=== PATIENT | female | born 1975 | race Caucasian/White ===

== ENCOUNTER → 2017-01-04 | Outpatient (CLI) | payer BC ==
[2017-01-04 10:22] LABS: EKG EKG PERFORMED
[2017-01-04 10:35] LABS: Basophils % (A) 0 %; CHCM 32.9; Eosinophils # (A) 0.2 k/uL (0-0.7); Eosinophils % (A) 3 %; HCT 40.3 % (34.0-46.0); HDW 2.42; HGB 13.3 gm/dL (11.4-16.0); Luc # (Auto) 0.21; Luc % (Auto) 3; Lymphocytes # (A) 1.8 k/uL (1.0-4.8); Lymphocytes % (A) 25 %; MCH 29.2 pg (25.0-35.0); MCV 88.5 fL (80.0-100.0); Mean Platelet Volume 7.3; Monocytes # (A) 0.4 k/uL (0-1.0); Monocytes % (A) 6 %; Neutrophils # (A) 4.5 k/uL (1.3-7.7); Neutrophils % (A) 63 %; RBC 4.55 m/uL (3.80-5.40); RDW 13.2 % (11.5-15.5); WBC 7.1 k/uL (3.8-10.6); WBC (Perox) 7.18
[2017-01-04 11:09] LABS: Anion Gap 12 mmol/L; Blood Urea Nitrogen 13 mg/dL (7-17); Carbon Dioxide 27 mmol/L (22-30); Chloride 103 mmol/L (98-107); Glucose 94 mg/dL (74-99); Non-African American GFR(MDRD) >60 (>60 ml/min/1.73 sqM); Potassium 4.4 mmol/L (3.5-5.1); Sodium 142 mmol/L (137-145)
== END | disposition home or self-care (01) ==
LOC: LABPAT 09:52
PROVIDERS: ATTEND Obstetrics & Gynecology
DX: Z01.812 Encounter for preprocedural laboratory examination (principal); Z01.810 Encounter for preprocedural cardiovascular examination; I10 Essential (primary) hypertension
CPT/HCPCS: 80051; 82565; 82947; 84520; 85025; 86850; 86900; 86901; 87086; 93005

== ENCOUNTER 2017-01-14 06:04 | Observation (INO) | payer BC ==
[2017-01-10 08:55] VITALS: BMI 44.4
[~2017-01-14 06:04] MED LIST: DEXAMETHASONE SOD PHOSPHATE 10 MG/ML 1 ML VIAL IV ONE; FAMOTIDINE 20 MG/2 ML VIAL IV PRN; HEPARIN SODIUM,PORCINE 5,000 UNIT/ML 1 ML VIAL SQ ONE; HYDROmorphone 1 MG/ML 1 ML SYRINGE IVP PRN; LACTATED RINGERS 1,000 ML IV SCH; LIDOCAINE 1% 20 ML VIAL (10MG/ML) FOR IV START INTRADERMA PRN; MIDAZOLAM 2 MG/2 ML VIAL IV PRN; ONDANSETRON 4 MG/2 ML VIAL IVP ONE; SCOPOLAMINE 1.5MG/72HR PATCH TRANSDERM ONE; ceFAZolin 3 GM in SODIUM CHLORIDE 0.9% 100 ML IVPB ONE
[2017-01-14] MEDS ORDERED: MIDAZOLAM 2 MG/2 ML VIAL IVP ONE (07:00)
[2017-01-14] MEDS ORDERED: fentaNYL (PF) 50 MCG/ML 2 ML AMP ONE (07:28)
[2017-01-14] MEDS ORDERED: SUCCINYLCHOLINE CHLORIDE 100 MG/5 ML SYR IV ONE (07:28)
[2017-01-14] MEDS ORDERED: diphenhydrAMINE 50 MG/ML 1 ML VIAL ONE (07:28)
[2017-01-14] MEDS ORDERED: MORPHINE SULFATE (PF) 0.3 MG/0.3 ML SYR ONE (07:28)
[2017-01-14] MEDS ORDERED: MIDAZOLAM 2 MG/2 ML VIAL ONE (07:28)
[2017-01-14] MEDS ORDERED: PROPOFOL 10 MG/ML 20 ML VIAL IV ONE (07:28)
[2017-01-14] MEDS ORDERED: LIDOCAINE 1% INJ 10MG/ML (20 ML MDV) ONE (07:28)
[2017-01-14] MEDS ORDERED: VASOPRESSIN 20 UNIT/ML 1 ML VIAL SQ ONE (07:47)
[2017-01-14] MEDS ORDERED: LACTATED RINGERS 1,000 ML IV ONE (08:25)
[2017-01-14] MEDS ORDERED: SIMETHICONE 80 MG CHEWABLE PO PRN (08:35)
[2017-01-14] MEDS ORDERED: ZOLPIDEM 5 MG TAB PO PRN (08:35)
[2017-01-14] MEDS ORDERED: ONDANSETRON 4 MG/2 ML VIAL IVP PRN ×2 (08:35→09:12)
[2017-01-14] MEDS ORDERED: METOCLOPRAMIDE 5 MG/ML 2 ML VIAL IVP PRN (08:35)
[2017-01-14] MEDS ORDERED: IBUPROFEN 600 MG TAB PO PRN (08:35)
--- NOTE | 2017-01-14 08:35 | P.OP ---
Date of Procedure: 01/14/17 Preoperative Diagnosis: Severe dysmenorrhea, fibroid uterus. Postoperative Diagnosis: Same, pathology pending, normal-appearing ovaries bilaterally Procedure(s) Performed: Vaginal hysterectomy Anesthesia: TOSHIAA Surgeon: Mago Clark Hand Hardener #1: Glenny Bustos Estimated Blood Loss (ml): 25 IV fluids (ml): 750 Urine output (ml): 100 Pathology: other (Cervix and uterus) Condition: stable Disposition: PACU Description of Procedure: Patient is brought to the operating suite where a general anesthetic is administered following a spinal with Duramorph. Patient is placed in the dorsal lithotomy position. The cervix, vagina, perineum and. Periurethral areas are all prepped and draped in usual sterile fashion. The appropriate timeout is performed to assure proper patient and procedural identification. Antibiotics are given. Urine hCG is negative. 5000 units subcutaneous heparin is also given. Sequential stockings are placed. Weighted speculum was placed into the vagina. The bladder is drained for 100 mL of clear yellow urine. The anterior lip of the cervix is grasped with a double-tooth tenaculum. The cervix is injected circumferentially with a dilute Pitressin solution, 10 mL total used. A port heiden blade scalpel is used to incise the mucosa circumferentially with a V like positioning posteriorly at 6:00. At all times the bladder swept well from the operative field to avoid bladder and/ or ureteral injury. Peritoneum is entered at 6:00, suture tied with 2-0 Vicryl which is held with a hemostat. Large billed speculum is placed then into the peritoneal cavity. The right uterosacral ligament complex is identified, clamped cut and held with a 0 Vicryl suture laterally. Same procedure is carried out on the contralateral ligament. Skeletonization is performed on the uterine vasculature. Uterine vasculature is clamped cut and suture ligated. 2 additional pedicles are taken superior to the vessels. The anterior peritoneal cavity is entered. The uterus is then "walked out" posteriorly. Jacobo clamps are used across the final ligaments and the specimen is sent to pathology for evaluation. The final pedicles are suture tied with 0 Vicryl suture, flashed, and retied for excellent hemostasis. A sponge stick is then used and ovaries are visualized, noted to be within normal limits to inspection and therefore left in situ per the patient's wishes. The shorter weighted speculum was then placed into the vagina. The 2-0 Vicryl suture is brought around in a pursestring fashion to close the peritoneal cavity. Peldxi-ej-rzlix sutures are used on the remaining portions of the vaginal mucosa for excellent reapproximation and hemostasis. The previously held uterosacral ligament complex these are brought across to incorporate the opposite complex as well as vaginal mucosa. Bernal catheter is then replaced, urine is clear. The vagina is packed with one-inch iodophor gauze. All sponge needle and enhancement counts are correct at the end of the procedure. Patient is brought back to recovery room in very good condition with stable vital signs including blood pressure 97/47, pulse 69, estimated blood loss 25 mL total. Complications: None.
[2017-01-14] MEDS ORDERED: MONTELUKAST 10 MG TAB PO STA (08:37)
[2017-01-14] MEDS ORDERED: diphenhydrAMINE 50 MG/ML 1 ML VIAL IVP PRN (09:12)
[2017-01-14] MEDS ORDERED: MORPHINE SULFATE 4 MG/ML SYRINGE IVP PRN (09:12)
[2017-01-14] MEDS ORDERED: NALBUPHINE 10 MG/ML AMPUL IV PRN (09:12)
[2017-01-14] MEDS ORDERED: NALOXONE 0.4 MG/ML 1 ML VIAL IV PRN (09:12)
[2017-01-14] MEDS: VENLAFAXINE HCL 75 MG TAB PO SCH ×2 (10:06→21:00)
[2017-01-14] MEDS: diphenhydrAMINE 50 MG/ML 1 ML VIAL IVP PRN ×3 (10:38→21:59)
[2017-01-14] MEDS: KETOROLAC 30 MG/ML 1 ML VIAL IVP PRN (21:12)
[2017-01-15] MEDS: KETOROLAC 30 MG/ML 1 ML VIAL IVP PRN (03:19)
[2017-01-15] MEDS: diphenhydrAMINE 50 MG/ML 1 ML VIAL IVP PRN (03:40)
--- NOTE | 2017-01-15 07:33 | P.DS ---
Providers Date of admission: 01/15/17 06:44 Expected date of discharge: 01/15/17 Attending physician: Mago Clark Primary care physician: [facility] Course: This is a 41-year-old white female who presented with a long-standing history of severe dysmenorrhea and fibroid uterus. She had had a uterine ablation years ago, and initially had good relief. However, menses have resumed at this time, and causing severe pain, likely consistent with adenomyosis. After consultation she elected to proceed with vaginal hysterectomy, please see my dictated history and physical for details. Patient underwent vaginal hysterectomy under my care yesterday. She did very well intraoperatively. The ovaries were inspected and noted to be normal, therefore they were left in situ. She received a spinal with Duramorph and had good analgesic results. Please see my dictated operative note for details. This morning the patient is doing well. She is voiding, ambulating and passing flatus without difficulty. Vital signs are stable and she is afebrile. Extremities are negative for edema, chest is clear in all white. Patient is passing flatus. Bernal catheter and vaginal packing have both been removed. She has been advanced to regular diet and may shower this morning as well. Plan is for discharge home later this morning. I have reminded her no intercourse, tampons or douching. She will use [id number] Advil or Aleve as needed for pain. I've asked her to call me with any fevers shakes or chills , foul smelling or bloody vaginal drainage, with any pain not alleviated by over -the-counter medications, with any difficulties or concerns, with any problems voiding or passing flatus. She is reminded no heavy lifting, no driving for 2 weeks, and will follow-up with me in the office in 2 weeks. Patient Condition at Discharge: Good Plan - Discharge Summary Discharge Medication List Albuterol Inhaler [Ventolin Hfa Inhaler] 1 - 2 puff INHALATION Q6HR PRN [History] Lisinopril/Hydrochlorothiazide [Zestoretic 20-25 mg Tablet] 1 tab PO DAILY 01/10 [History] Relpax (Unknown Dose) 1 dose PO DIRECTED PRN 01/10/17 [History] Venlafaxine HCl [Effexor XR] 150 mg PO DAILY 01/10/17 [History] Follow up Appointment(s)/Referral(s): Mago Clark MD [STAFF PHYSICIAN] - 2 Weeks Discharge Disposition: HOME SELF-CARE
--- NOTE | 2017-01-15 08:35 | P.PN ---
Progress Note - Text Date: 01/15/2017 Time: 704 The patient is status post, vaginal hysterectomy Vital signs stable VAS:0-10 Patient has no complaints of pain. The patient incurred some minimal itching yesterday, this itching is now subsiding. Pain meds to be managed by service.
[2017-01-15 09:10] VITALS: BP 106/66; PULSE 64; RESP 20; TEMP 97.6
[2017-01-15] MEDS: VENLAFAXINE HCL 75 MG TAB PO SCH (09:27)
== END 2017-01-15 11:42 | disposition home or self-care (01) ==
LOC: OR 06:04 → 6PED 08:28 → OR 01-15 06:44 → 6PED 01-15 06:44
PROVIDERS: ADMIT Obstetrics & Gynecology; ATTEND Obstetrics & Gynecology
DX: N85.8 Other specified noninflammatory disorders of uterus (principal); N94.6 Dysmenorrhea, unspecified; Z88.5 Allergy status to narcotic agent; Z88.8 Allergy status to other drugs, medicaments and biological substances; J45.909 Unspecified asthma, uncomplicated; F32.9 Major depressive disorder, single episode, unspecified; E66.01 Morbid (severe) obesity due to excess calories; Z79.899 Other long term (current) drug therapy; Z68.41 Body mass index [BMI] 40.0-44.9, adult
CPT/HCPCS: 58260; 81025; 88342; 88307; G0378; J2250; J1200 ×2; J1644; J1100; J0690; J2405; J2001; J2274; J3010; J1885 ×2; J0330; J2704; 86850; 86900; 86901

== ENCOUNTER 2017-01-18 10:43 | Emergency (ER) | payer BC ==
[2017-01-18] MEDS ORDERED: SODIUM CHLORIDE 0.9% 1,000 ML IV STA (11:04)
--- NOTE | 2017-01-18 11:07 | ED ---
Headache HPI - General Chief Complaint: Headache Stated Complaint: headache Time Seen by Provider: 01/18/17 10:59 Mode of arrival: ambulatory Limitations: no limitations - History of Present Illness Initial Comments: 41-year-old female underwent a vaginal hysterectomy 4 days ago and had a spinal place for pain management she's developed a headache worse when she stands up pounding no blurry vision no fever no chills nausea but no vomiting spoke to the anesthesiologist yesterday and was told to increase her caffeine intake and common today if she is not better. She has had no serious health problems. She 's had no trouble regarding the surgery itself. No fever no chills no drainage she's had a history of well-controlled hypertension migraine. She is on no current blood thinners. - Related Data Home Medications Medication Instructions Recorded Confirmed Albuterol Inhaler [Ventolin Hfa 1 - 2 puff INHALATION RT-QID PRN 01/10/17 Inhaler] Lisinopril/Hydrochlorothiazide 1 tab PO DAILY 01/10/17 01/15/17 [Zestoretic 20-25 mg Tablet] Venlafaxine HCl [Effexor XR] 150 mg PO DAILY 01/10/17 01/15/17 Eletriptan [Relpax] 40 mg PO DAILY PRN 01/15/17 01/15/17 Allergies Allergy/AdvReac Type Severity Reaction Status Date / Time codeine Allergy Unknown Itching Verified 01/18/17 10:47 amlodipine [From Norvasc] Allergy Swelling Verified 01/18/17 10:47 Review of Systems ROS Statement: Those systems with pertinent positive or pertinent negative responses have been documented in the HPI. ROS Other: All systems not noted in ROS Statement are negative. Constitutional: Denies: fever ENT: Denies: ear pain, throat pain Respiratory: Denies: cough Endocrine: Denies: fatigue Gastrointestinal: Reports: nausea. 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 Absent: meningismus Respiratory exam: Present: normal lung sounds bilaterally Cardiovascular Exam: Present: normal rhythm GI/Abdominal exam: Present: soft. Absent: tenderness Neurological exam: Present: alert, CN II-XII intact Psychiatric exam: Present: normal affect Skin exam: Present: warm, dry Course Vital Signs 01/18/17 01/18/17 01/18/17 10:45 12:10 12:21 Temperature 97.8 F Pulse Rate 75 Respiratory 20 Rate Blood Pressure 136/82 124/74 121/67 O2 Sat by Pulse 98 Oximetry - Reevaluation(s) Reevaluation #1: 01/18/17 14:06 Blood patch was placed by the anesthesiologist she has no pain with sitting up would like to go home. Medical Decision Making - Medical Decision Making Spoke with the anesthesiologist Dr. Lozano, he will come in to do a blood patch. - Lab Data Result diagrams: 01/18/17 11:36 01/18/17 11:36 Lab Results 01/18/17 01/18/17 Range/Units 11:36 11:36 WBC 9.6 (3.8-10.6) k/uL RBC 4.48 (3.80-5.40) m/uL Hgb 13.0 (11.4-16.0) gm/dL Hct 39.5 (34.0-46.0) % MCV 88.0 (80.0-100.0) fL MCH 28.9 (25.0-35.0) pg MCHC 32.9 (31.0-37.0) g/dL RDW 13.0 (11.5-15.5) % Plt Count 357 (150-450) k/uL Neutrophils % 63 % Lymphocytes % 27 % Monocytes % 4 % Eosinophils % 4 % Basophils % 1 % Neutrophils # 6.0 (1.3-7.7) k/uL Lymphocytes # 2.6 (1.0-4.8) k/uL Monocytes # 0.4 (0-1.0) k/uL Eosinophils # 0.4 (0-0.7) k/uL Basophils # 0.1 (0-0.2) k/uL Sodium 142 (137-145) mmol/L Potassium 4.3 (3.5-5.1) mmol/L Chloride 103 (98-107) mmol/L Carbon Dioxide 28 (22-30) mmol/L Anion Gap 11 mmol/L BUN 13 (7-17) mg/dL Creatinine 0.85 (0.52-1.04) mg/dL Est GFR (MDRD) Af Amer >60 (>60 ml/min/1.73 sqM) Est GFR (MDRD) Non-Af >60 (>60 ml/min/1.73 sqM) Glucose 112 H (74-99) mg/dL Calcium 9.0 (8.4-10.2) mg/dL Disposition Clinical Impression: Spinal headache Disposition: HOME SELF-CARE Condition: Good Instructions: Acute Headache (ED) Referrals: Tristan De Anda MD [Primary Care Provider] - 1-2 days Time of Disposition: 14:08
[2017-01-18 12:00] LABS: Basophils # (A) 0.1 k/uL (0-0.2); Basophils % (A) 1 %; CH 29.2; CHCM 33.3; Eosinophils # (A) 0.4 k/uL (0-0.7); Eosinophils % (A) 4 %; HCT 39.5 % (34.0-46.0); HDW 2.51; Luc # (Auto) 0.19; Luc % (Auto) 2; Lymphocytes # (A) 2.6 k/uL (1.0-4.8); Lymphocytes % (A) 27 %; MCH 28.9 pg (25.0-35.0); MCHC 32.9 g/dL (31.0-37.0); Mean Platelet Volume 7.5; Monocytes # (A) 0.4 k/uL (0-1.0); Monocytes % (A) 4 %; Neutrophils % (A) 63 %; RBC 4.48 m/uL (3.80-5.40); WBC 9.6 k/uL (3.8-10.6); WBC (Perox) 9.76
[2017-01-18 12:14] LABS: Anion Gap 11 mmol/L; Blood Urea Nitrogen 13 mg/dL (7-17); Carbon Dioxide 28 mmol/L (22-30); Chloride 103 mmol/L (98-107); Glucose 112 mg/dL (74-99); Non-African American GFR(MDRD) >60 (>60 ml/min/1.73 sqM); Potassium 4.3 mmol/L (3.5-5.1); Sodium 142 mmol/L (137-145)
[2017-01-18] MEDS ORDERED: HYDROmorphone 1 MG/ML 1 ML SYRINGE IVP STA (12:14)
[2017-01-18] MEDS ORDERED: LORazepam 2 MG/ML SYRINGE IV STA (12:22)
--- NOTE | 2017-01-18 13:12 | P.PN ---
Progress Note - Text Anesthesia was consulted to evaluate a patient that has symptoms and signs of a post dural puncture headache. The patient received a spinal [4 ] days ago. The patient states that her headache is increased in severity when she is standing and sitting. Her headache symptoms subside when she is in the supine position. The patient has tried a course of conservative therapy including fluids, caffeine and pain meds. The conservative treatment has not relieved her headache symptoms when she is in the sitting and standing position. Patient states she feels pain in the back of her neck up into her temporal and frontal regions. Patient does not exhibit any photophobia or nausea at this time. Procedure: The procedure and its risks and benefits were explained to the patient. The patient understood and consented to have an lumbar epidural epidural blood patch performed. The patient was placed in the sitting position. The patient's low back was sterilely prepped and draped. An 18- gauge Touhy was placed in the patient's epidural space at L3-L4 without difficulty. No CSF or blood was observed. Then approximately[15 ] mL's of the patient's autologous blood was injected in the epidural space incrementally. Patient's blood was drawn by an ophthalmic medical assistant under sterile conditions. The patient then noticed a decrease intensity of her headache in the sitting position. The patient was then placed in the supine position. She tolerated the procedure well. The patient was instructed to remain at bed rest for the next 2-3 hours after she gets home from the emergency room.. She also was instructed to continue with fluids and any pain medicines as needed. The patient was also instructed to refrain from any bending or lifting today.
[2017-01-18 14:41] VITALS: BP 135/86; PULSE 70; RESP 18; TEMP 98.4
== END 2017-01-18 14:42 | disposition home or self-care (01) ==
LOC: EC 10:43
DX: G97.1 Other reaction to spinal and lumbar puncture (principal); Y84.4 Aspiration of fluid as the cause of abnormal reaction of the patient, or of later complication, without mention of misadventure at the time of the procedure; I10 Essential (primary) hypertension; F32.9 Major depressive disorder, single episode, unspecified; F41.9 Anxiety disorder, unspecified; Z87.891 Personal history of nicotine dependence; Z88.8 Allergy status to other drugs, medicaments and biological substances; Z88.5 Allergy status to narcotic agent; Z79.899 Other long term (current) drug therapy; Z90.710 Acquired absence of both cervix and uterus
CPT/HCPCS: 99283; 96374; 96361; 36415; 80048; 85025; J2060

== ENCOUNTER → 2024-10-27 | Day surgery (SDC) | payer BC ==
--- NOTE | 2024-11-05 09:28 | MM ---
Reason for Exam: Post Procedure Mammogram. Risk Values: Roxanne 5 year model risk: 0.6%. NCI Lifetime model risk: 6.2%. Tissue Density: Right: The breasts are heterogeneously dense, which may obscure small masses. Pathology Description: Location: 1 o'clock. Marker Left Behind. Needle Type: Celero Cores: 3 Gauge: 12 The procedure of ultrasound guided core biopsy was explained to the patient. Benefits, alternatives, and risks were discussed. An informed consent was then obtained. The patient was placed in supine positioning for imaging and for the procedure. The overlying skin was prepped and draped in usual sterile fashion. Lidocaine buffered with bicarbonate was used as anesthetic into the skin and subcutaneous tissue up to area of concern in the right 1:00 breast. A nava was made with surgical scalpel. Under ultrasound guidance, a 12-gauge vacuum assisted biopsy gun device was used to obtain 3 core samples. Following this, a biopsy clip was left in lesion. The patient tolerated the procedure well without any immediate complication. The patient was kept in the radiology department for short stay after the procedure and then discharged home in stable condition. Postprocedure mammogram: The patient was transferred to mammography for physician ordered post procedure mammogram for clip placement verification. Post procedure mammogram demonstrates the clip in appropriate placement. Impression: Successful, uncomplicated ultrasound guided core biopsy of area of concern in the right 1:00 breast, full pathology results to follow. [facility], , 10/27/2024 2:35 PM. Pathology Results: Result: Benign, Fibroadenoma. Pathology and radiology were reviewed. Findings are concordant. RIGHT BREAST, 1:00, ULTRASOUND GUIDED CORE BIOPSY: Fibroadenoma and adjacent fibrocytic change with apocrine metaplasia and usual ductal hyperplasia (see note). Notes To confirm the diagnosis, immunostaining with CK5/6 is performed with appropriate control on the tissue block. CK5/6 stains positive within the area of usual ductal hyperplasia with a mosaic pattern. Overall Assessment: Benign Assessment: MG diagnostic mammo RT wo CAD - Right: Benign, BI-RAD 2. Management: Diagnostic Mammogram of the right breast in 6 months. Diagnostic Breast Ultrasound of the right breast in 6 months. Electronically signed and approved by: Juan Ramon Greene M.D. Radiologis
== END ==
LOC: RADUSWWP 12:52
PROVIDERS: ATTEND Surgery
DX: D24.1 Benign neoplasm of right breast (principal); N60.81 Other benign mammary dysplasias of right breast
CPT/HCPCS: 88342; 88305; 88341; 77065; 19083; A4648

== ENCOUNTER → 2024-11-19 | Outpatient (CLI) | payer BC ==
[2024-11-19 14:21] VITALS: BP 152/96; PULSE 86; RESP 17; TEMP 98.2
--- NOTE | 2024-11-19 14:54 | P.GSCN ---
History of Present Illness Consult date: 11/19/24 Reason for Consult: Fibroadenoma right breast 1:00 Requesting physician: Farhat Capone History of present illness: 49-year-old female seen in consultation for Dr. Capone regarding a biopsy- proven right breast fibroadenoma. She underwent a bilateral mammogram on 3123. This revealed a central density in the right breast and a diagnostic mammogram of the right breast was performed in 12-15-2023. This was felt to be probably benign and 6-month follow-up was recommended. The patient had a unilateral right breast mammogram on 09-15-2024. This did not show any suspicious lesions of concern however an ultrasound was recommended. The ultrasound was performed on 10-08-2024. The ultrasound revealed a hypoechoic lesion measuring 5 x 4 x 4 mm at the 1 o'clock position. [place] to be suspicious and an ultrasound core biopsy was recommended. The patient was noted to have at the 10 o'clock position a probable bilobed cyst. Ultrasound core biopsy of the lesion was performed on 10-27-2024. Biopsy was consistent with a fibroadenoma and felt to be benign concordant. She did not feel anything in her breast. She has not had any surgery on her breast other than the biopsy which was recently done on the right breast. She is not complaining of any recent nipple discharge, skin changes in the breast, or trauma or infection in the breast. Caffeine: 2 coffee/morning nicotine: none chocolate: weekly BCP: in her 20's hormones: none Family History: mother: basal cell on her face Hormonal History: menarche: 13 M3, breast feed: yes, age at first : 31 hysterectomy for endometriosis at 42, did not take her ovaries Surgical History: hysterectomy gallbaldder sleeve gastrectomy cardiac ablation laproscopies Medical Histoy: depression/anxiety afib gout HTN Social History: nicotine: stopped 17 years ago alcohol: monthly drugs: none Review of Systems - Constitutional Reports sweats - EENT Eyes: denies blurred vision Ears: deny: decreased hearing, tinnitus Ears, nose, mouth and throat: Denies dysphagia - Breasts bilateral: as per HPI - Cardiovascular Denies chest pain, Denies shortness of breath - Respiratory Denies cough, Denies 7 - Gastrointestinal Reports as per HPI - Genitourinary Genitourinary: Denies dysuria, Denies hematuria Menstruation: Reports post hysterectomy - Musculoskeletal Reports as per HPI - Integumentary Reports pruritus - Neurological Denies headaches, Denies syncope - Psychiatric Reports anxiety, Reports depression - Endocrine Reports as per HPI - Hematologic/Lymphatic Reports as per HPI - Allergic/Immunologic Reports seasonal allergies Past Medical History Past Medical History: No Reported History History of Any Multi-Drug Resistant Organisms: None Reported Past Surgical History: Adenoidectomy, Bariatric Surgery, Cholecystectomy, Hysterectomy, Tonsillectomy Additional Past Surgical History / Comment(s): 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 Gastric sleeve 2020 Past Anesthesia/Blood Transfusion Reactions: No Reported Reaction Past Psychological History: ADD/ADHD, Anxiety, Depression Smoking Status: Former smoker Past Alcohol Use History: Occasional Additional Past Alcohol Use History / Comment(s): quit smoking 2006 Past Drug Use History: None Reported Medications and Allergies Home Medications Medication Instructions Recorded Confirmed Type ALPRAZolam [Xanax] 0.25 mg PO DAILY PRN 01/18/17 11/19/24 History FLUoxetine HCL [PROzac] 20 mg PO DAILY 10/13/24 11/19/24 History Methylphenidate HCl 50 mg PO DAILY 10/13/24 11/19/24 History [Methylphenidate ER] Allergies Allergy/AdvReac Type Severity Reaction Status Date / Time codeine Allergy Unknown Itching Verified 11/19/24 14:18 amlodipine [From Norvasc] Allergy Swelling Verified 11/19/24 14:18 Surgical - Exam Vital Signs Temp Pulse Resp BP Pulse Ox 98.2 F 86 17 152/96 98 11/19/24 14:18 11/19/24 14:18 11/19/24 14:18 11/19/24 14:18 11/19/24 14:18 - General no distress - Eyes normal ocular movement - ENT no hearing loss - Neck trachea midline - Respiratory normal respiratory effort, clear to auscultation - Cardiovascular Rhythm: regular Heart Sounds: normal: S1, S2 - Abdomen Abdomen: soft, non tender, no guarding, no rigid, no rebound - Integumentary normal turgor - Neurologic no disoriented, no combative - Musculoskeletal normal gait - Psychiatric oriented to time, oriented to person, oriented to place, speech is normal, memory intact Breast Exam: BRA: 36B inspection: Bilateral grade 3 ptosis Palpation: Right breast: Multi positional exam no dominant masses or nodules of concern Right axilla: No adenopathy of concern Left breast: Multi positional exam no dominant masses or nodules of concern Left axilla: No adenopathy of concern Results Mammogram and ultrasound personally reviewed and interpreted Assessment and Plan Assessment: Plan: Right breast fibroadenoma Fibrocystic breast changes Plan: Patient is due for a left breast mammogram in December with follow up at that time right breast mammogram and ultrasound in April 2025 with appointment; if this is OK bilateral at one year, April 2026 patient to follow up sooner any concerns CC: Dr. Sherman
== END ==
LOC: WWCWWP 13:10
PROVIDERS: ATTEND Surgery
DX: N60.11 Diffuse cystic mastopathy of right breast (principal); N60.21 Fibroadenosis of right breast; Z88.8 Allergy status to other drugs, medicaments and biological substances; Z88.5 Allergy status to narcotic agent; Z87.891 Personal history of nicotine dependence